=== PATIENT | female | born 1990 | race Hispanic/Latino ===

== ENCOUNTER 2021-07-04 13:35 | Outpatient (CLI) | payer OTHER | END 2021-07-04 13:36 | disposition home or self-care (01) | LOC: BICULT 13:35 | PROVIDERS: ATTEND Family Medicine | DX: O09.892 Supervision of other high risk pregnancies, second trimester (principal); Z3A.21 21 weeks gestation of pregnancy | CPT/HCPCS: 76805 ==

== ENCOUNTER 2023-08-16 12:46 | Emergency (ER) | payer OTHER, SELFPAY ==
[2023-08-16 13:31] LABS: #Eosinphils 0.1 thou/uL (0.0-0.7); #Monocytes 0.3 thou/uL (0.11-0.59); #Neutrophils 5.3 thou/uL (1.40-6.50); %Basophils 0.3 % (0.0-1.0); %Eosinophils 0.9 % (0.0-10.0); %Lymphocytes 26.8 % (21.0-51.0); %Monocytes 3.4 % (0.0-10.0); %Neutrophils 68.2 % (42.0-75.0); Hematocrit 41.3 % (36.0-47.0); Hemoglobin 14.5 g/dL (12.0-16.0); Mean Corpuscular HGB CONC 35.1 g/dL (32.0-36.0); Mean Corpuscular Hemoglobin 31.7 pg (27.0-31.0); Mean Corpuscular Volume 90.4 fl (78.0-98.0); Mean Platelet Volume 11.2 fL (7.4-10.4); Platelet Count 250 10x3/uL (130-400); Red Blood Cell (RBC) Count 4.57 mill/uL (4.20-5.40); White Blood Cell (WBC) Count 7.8 10x3/uL (4.8-10.8)
[2023-08-16 13:34] LABS: Bacteria/HPF 1+ HPF (None Seen); Bilirubin Negative (Negative); CAUTI Indications for Culture Dysuria,urgency,freq; Clarity Clear (Clear); Glucose, Urine (Dipstick) Normal (Negative); Leukocyte 25 Leu/uL (Negative); Protein, Urine (Dipstick) 20 mg/dL (Neg-Trace); RBC/HPF 21-50 HPF (0-3); Specific Gravity, Urine 1.006 (1.002-1.036); Squamous Epithelial 0-3 HPF (0-3); Urobilinogen Normal mg/dL (Less than 2); WBC/HPF 21-50 HPF (0-3)
[2023-08-16 13:35] LABS: Nitrite Negative (Negative)
[2023-08-16 13:37] LABS: Blood, Urine 3+ (Negative); Ketone, Urine 40 mg/dL (Negative)
[2023-08-16 13:38] LABS: Urine Culture Reflex Yes Yes
== END 2023-08-16 15:55 | disposition home or self-care (01) ==
LOC: ERS 12:46
DX: O23.41 Unspecified infection of urinary tract in pregnancy, first trimester (principal); N39.0 Urinary tract infection, site not specified; O20.0 Threatened abortion; O34.11 Maternal care for benign tumor of corpus uteri, first trimester; D25.9 Leiomyoma of uterus, unspecified; Z3A.10 10 weeks gestation of pregnancy
CPT/HCPCS: 36415; 76801; 81001; 84702; 85025; 86850; 86900; 86901; 87086

== ENCOUNTER 2023-08-18 08:15 | Emergency (ER) | payer SELFPAY | END 2023-08-18 10:58 | disposition home or self-care (01) | LOC: ERS 08:15 | DX: O20.0 Threatened abortion (principal); Z3A.10 10 weeks gestation of pregnancy | CPT/HCPCS: 36415; 84702; 99284 ==